=== PATIENT | female | born 1985 ===

== ENCOUNTER 2018-01-13 08:06 | Emergency (ER) | payer OTHER, MEDICAID ==
[2018-01-13 08:15] VITALS: RESP 16
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
[2018-01-13 10:24] VITALS: BP 133/74; PULSE 85; TEMP 98
[2018-01-13 14:51] VITALS: O2SAT 99
== END 2018-01-13 10:24 | disposition home or self-care (01) ==
LOC: C.ER 08:06
DX: S80.02XA Contusion of left knee, initial encounter (principal); S80.01XA Contusion of right knee, initial encounter; V03.10XA Pedestrian on foot injured in collision with car, pick-up truck or van in traffic accident, initial encounter; Y92.410 Unspecified street and highway as the place of occurrence of the external cause